=== PATIENT | female | born 1945 | race Caucasian/White ===

== ENCOUNTER 2020-02-11 08:50 | Inpatient (IN) | payer MEDICARE, BC ==
--- NOTE | 2020-02-11 09:28 | ED ---
General Adult HPI - General Chief complaint: Recheck/Abnormal Lab/Rx Stated complaint: Jaundice & itchy Time Seen by Provider: 02/11/20 09:00 Source: patient, RN notes reviewed Mode of arrival: ambulatory Limitations: no limitations - History of Present Illness Initial comments: This is a 74-year-old female history of colon cancer with resection who cur rently has a J-pouch also a history kidney stones with lithotripsy history of cholecystectomy in the past who presents with complaints of jaundice and itching for the past 8 days. She had been treated for urinary tract infection was and Bactrim but it did not seem to be helping she was switched to Macrobid. She has one Macrobid tablet left. She states that she started developing a yellow color to her eyes and skin 8 days ago. She was in [place] at the time or she lives she came home to visit family she presents now with this complaint. No recent illnesses except for the possible urinary tract infection no fevers chills nausea vomiting sweats cough phlegm production no trauma no other medications no other toxic substances that she is aware of. He has noted that her urine is been darker in addition to the yellowness to her skin and sclera. - Related Data Home Medications Medication Instructions Recorded Confirmed Aspirin EC [Ecotrin Low Dose] 81 mg PO HS 02/11/20 02/11/20 Fluticasone Nasal [place] [Flonase 2 spr EA NOSTRIL DAILY PRN 02/11/20 02/11/20 Nasal [place]] Levothyroxine Sodium [Synthroid] 88 mcg PO DAILY 02/11/20 02/11/20 Loperamide [Imodium] 4 mg PO BID 02/11/20 02/11/20 Meloxicam [Mobic] 7.5 mg PO BID 02/11/20 02/11/20 Montelukast [Singulair] 10 mg PO HS 02/11/20 02/11/20 Nitrofurantoin Monohyd/M-Cryst 100 mg PO Q12HR 02/11/20 02/11/20 [Macrobid] busPIRone HCL [Buspar] 7.5 mg PO BID PRN 02/11/20 02/11/20 Allergies Allergy/AdvReac Type Severity Reaction Status Date / Time Penicillins Allergy Rash/Hives Verified 02/11/20 09:42 mesalamine [From [place]] AdvReac Nausea Verified 02/11/20 09:42 Review of Systems ROS Statement: Those systems with pertinent positive or pertinent negative responses have been documented in the HPI. ROS Other: All systems not noted in ROS Statement are negative. Past Medical History Additional Past Medical History / Comment(s): colan cancer, kideny stones History of Any Multi-Drug Resistant Organisms: None Reported Past Surgical History: Bowel Resection, Cholecystectomy, Tonsillectomy Additional Past Surgical History / Comment(s): lithrotripsy Past Psychological History: No Psychological Hx Reported Smoking Status: Never smoker Past Alcohol Use History: None Reported Past Drug Use History: None Reported General Exam - General Exam Comments Initial Comments: This is a well-developed sec appearing female who is awake alert oriented 3 Limitations: no limitations General appearance: alert, in no apparent distress Head exam: Present: atraumatic, normocephalic, normal inspection Eye exam: Present: PERRL, EOMI, scleral icterus. Absent: conjunctival injection, periorbital swelling ENT exam: Present: normal exam, mucous membranes moist Neck exam: Present: normal inspection. Absent: tenderness, meningismus, lymphadenopathy Respiratory exam: Present: normal lung sounds bilaterally. Absent: respiratory distress, wheezes, rales, rhonchi, stridor Cardiovascular Exam: Present: regular rate, normal rhythm, normal heart sounds. Absent: systolic murmur, diastolic murmur, rubs, gallop, clicks GI/Abdominal exam: Present: soft, normal bowel sounds. Absent: distended, tenderness, guarding, rebound, rigid Extremities exam: Present: normal inspection, full ROM, normal capillary refill. Absent: tenderness, pedal edema, joint swelling, calf tenderness Back exam: Present: normal inspection Neurological exam: Present: alert, oriented X3, CN II-XII intact Psychiatric exam: Present: normal affect, normal mood Skin exam: Present: warm, dry, intact, other (Jaundice). Absent: rash Course Vital Signs 02/11/20 08:56 Temperature 98.1 F Pulse Rate 93 Respiratory 18 Rate Blood Pressure 125/80 O2 Sat by Pulse 98 Oximetry Medical Decision Making - Medical Decision Making I did discuss the findings thus far the patient as well as with her daughter over the phone. I also discussed the case with Dr. Miller. Patient will be admitted to Dr. Read's service with further evaluation for painless jaundice - Lab Data Result diagrams: 02/11/20 09:21 02/11/20 09:21 Lab Results 02/11/20 02/11/20 02/11/20 Range/Units 09:21 09:21 09:58 WBC 14.2 H (3.8-10.6) k/uL RBC 3.59 L (3.80-5.40) m/uL Hgb 11.6 (11.4-16.0) gm/dL Hct 36.8 (34.0-46.0) % MCV 102.6 H (80.0-100.0) fL MCH 32.2 (25.0-35.0) pg MCHC 31.4 (31.0-37.0) g/dL RDW 16.6 H (11.5-15.5) % Plt Count 293 (150-450) k/uL MPV 9.7 Neutrophils % (Manual) 72 % Lymphocytes % (Manual) 15 % Monocytes % (Manual) 8 % Eosinophils % (Manual) 5 % Neutrophils # (Manual) 10.22 H (1.3-7.7) k/uL Lymphocytes # (Manual) 2.13 (1.0-4.8) k/uL Monocytes # (Manual) 1.14 H (0-1.0) k/uL Eosinophils # (Manual) 0.71 H (0-0.7) k/uL Nucleated RBCs 0 (0-0) /100 WBC Manual Slide Review Performed Anisocytosis Slight Macrocytosis Moderate Target Cells Present Sodium 139 (137-145) mmol/L Potassium 4.4 (3.5-5.1) mmol/L Chloride 110 H (98-107) mmol/L Carbon Dioxide 19 L (22-30) mmol/L Anion Gap 10 mmol/L BUN 28 H (7-17) mg/dL Creatinine 1.20 H (0.52-1.04) mg/dL Est GFR (CKD-EPI)AfAm 51 (>60 ml/min/1.73 sqM) Est GFR (CKD-EPI)NonAf 44 (>60 ml/min/1.73 sqM) Glucose 135 H (74-99) mg/dL Calcium 9.4 (8.4-10.2) mg/dL Total Bilirubin 19.2 H* (0.2-1.3) mg/dL AST 122 H (14-36) U/L ALT 59 H (4-34) U/L Alkaline Phosphatase 449 H (38-126) U/L Creatine Kinase 74 (30-135) U/L Total Protein 7.5 (6.3-8.2) g/dL Albumin 3.7 (3.5-5.0) g/dL Urine Color Dark Brown Urine Appearance Cloudy H (Clear) Urine pH 6.0 (5.0-8.0) Ur Specific [place] 1.015 (1.001-1.035) Urine Protein 1+ H (Negative) Urine Glucose (UA) Negative (Negative) Urine Ketones Negative (Negative) Urine Blood Small H (Negative) Urine Nitrite Negative (Negative) Urine Bilirubin 4+ H (Negative) Urine Urobilinogen <2.0 (<2.0) mg/dL Ur Leukocyte Esterase Large H (Negative) Urine RBC 30 H (0-5) /hpf Urine WBC 62 H (0-5) /hpf Urine WBC Clumps Few H (None) /hpf Ur Squamous Epith Cells 20 H (0-4) /hpf Amorphous Sediment Rare H (None) /hpf Urine Bacteria Rare H (None) /hpf Hyaline Casts 6 H (0-2) /lpf Granular Casts 4 (0) /lpf WBC Casts 3 (0) /lpf Urine Mucus Occasional H (None) /hpf Disposition Clinical Impression: Painless jaundice, Renal insufficiency Disposition: ADMITTED IP TO THIS [facility] Condition: Fair Referrals: Nonstaff,Physician [Primary Care Provider] - 1-2 days
[2020-02-11 09:52] LABS: Albumin 3.7 g/dL (3.5-5.0); Calcium 9.4 mg/dL (8.4-10.2); Potassium 4.4 mmol/L (3.5-5.1); Total Protein 7.5 g/dL (6.3-8.2)
[2020-02-11 09:59] LABS: Total Bilirubin 19.2 mg/dL (0.2-1.3)
[2020-02-11 10:28] LABS: Amorphous Sediment,Urine Rare /hpf; Appearance,Urine Cloudy (Clear); Bacteria,Urine Rare /hpf; Bilirubin,Urine 4+ (Negative); Blood,Urine Small (Negative); Color,Urine Dark Brown; Glucose,Urine (UA) Negative (Negative); Granular Casts,Urine 4 /lpf (0); Hyaline Casts,Urine 6 /lpf (0-2); Ketones,Urine Negative (Negative); Leukocyte Esterase,Urine Large (Negative); Mucus,Urine Occasional /hpf; Nitrite,Urine Negative (Negative); Protein,Urine 1+ (Negative); RBC,Urine 30 /hpf (0-5); Specific Gravity,Urine 1.015 (1.001-1.035); Squamous Epithelial Cell,Urine 20 /hpf (0-4); Urobilinogen,Urine <2.0 mg/dL (<2.0); WBC,Urine 62 /hpf (0-5); White Blood Cell Casts,Urine 3 /lpf (0)
[2020-02-11 10:45] LABS: Anisocytosis Slight; HCT 36.8 % (34.0-46.0); HGB 11.6 gm/dL (11.4-16.0); MCH 32.2 pg (25.0-35.0); MCHC 31.4 g/dL (31.0-37.0); MCV 102.6 fL (80.0-100.0); Macrocytosis Moderate; Mean Platelet Volume 9.7; RBC 3.59 m/uL (3.80-5.40); RDW 16.6 % (11.5-15.5); WBC 14.2 k/uL (3.8-10.6)
[2020-02-11 11:11] LABS: Eosinophils # (M) 0.71 k/uL (0-0.7); Lymphocytes # (M) 2.13 k/uL (1.0-4.8); Monocytes # (M) 1.14 k/uL (0-1.0); Neutrophils # (M) 10.22 k/uL (1.3-7.7); Neutrophils % (M) 72 %; Nucleated Red Blood Cells 0 /100 WBC (0-0); Total Cells Counted 100
[2020-02-11 11:12] LABS: Target Cells Present
[2020-02-11 11:16] LABS: Platelet Count 293 k/uL (150-450)
[2020-02-11] MEDS ORDERED: NALOXONE 0.4 MG/ML 1 ML VIAL IV PRN (12:32)
[2020-02-11] MEDS: SODIUM CHLORIDE 0.9% 1,000 ML IV SCH (12:48)
--- NOTE | 2020-02-11 13:01 | CT ---
EXAMINATION TYPE: CT abdomen pelvis wo con DATE OF EXAM: 02/11/2020 HISTORY: painless jaundice CT DLP: 574.2 mGycm. Automated Exposure Control for Dose Reduction was Utilized. TECHNIQUE: CT scan of the abdomen and pelvis is performed without oral or IV contrast. COMPARISON: NONE FINDINGS: Within the limitations of a non-contrast study, the following observations are made. LUNG BASES: Mild bibasilar linear scarring and/or atelectasis. LIVER/GB: Liver normal in size. Gallbladder not well seen. Difficult to visualize extra hepatic bilia ry ducts with fullness in the marcel hepatis. There is mild ill-defined fluid and fat stranding extend ing from this level. Moderate to severe central periportal edema. PANCREAS: No suspicious mass or ductal dilatation. SPLEEN: No significant abnormality is seen. ADRENALS: No significant abnormality is seen. KIDNEYS: Roughly 6-8 small nonobstructing calculi scattered throughout the left kidney. There are mor e and larger calculi scattered throughout the right kidney measuring up to 11 mm long axis coronal im age 41. There are additional calculi in the right pelvis including dominant 14 mm calculus coronal im age 34 and adjacent dominant 14 mm calculus lower pole level coronal image 38. Asymmetric mild left-s ided hydronephrosis without obstructing calculus clearly seen. Poorly distended bladder. Bowel: Surgical changes at level of the rectum. Suboptimal evaluation of bowel without enteric contra st. Additional surgical sutures in the right lower quadrant/upper pelvis. No suspicious small or larg e bowel dilatation. GENITAL ORGANS: Heterogeneous anteverted uterus projects just to left of midline sagittal image 63. LYMPH NODES: No greater than 1cm abdominal or pelvic lymph nodes are appreciated. OSSEOUS STRUCTURES: Moderate to severe narrowing bilateral hip joints. Severe narrowing at the pubic symphysis. OTHER: No significant additional abnormality is seen. IMPRESSION: 1. Bilateral nonobstructing renal calculi right more numerous and larger than left side. Suspect mild left-sided hydronephrosis without obstructing calculus clearly seen. 2. Suboptimal study without IV or oral contrast. Liver normal in size with moderate to severe nonspec ific periportal edema. Poor visualization of gallbladder and biliary ducts. There is fullness in the marcel hepatis with mild fat stranding. Follow-up contrast enhanced CT or MRI advised to better evalua te and characterize. 3. Postsurgical changes to bowel without obstruction.
--- NOTE | 2020-02-11 14:25 | US ---
EXAMINATION TYPE: US abdomen complete DATE OF EXAM: 02/11/2020 COMPARISON: CLINICAL HISTORY: Painless jaundice. GB removed. Hx colon cancer. Jaundice. EXAM MEASUREMENTS: Liver Length: 15.7 cm CBD: 0.5 cm Spleen: 10.3 cm Right Kidney: 9.4 x 4.5 x 4.0 cm Left Kidney: 10.1 x 4.1 x 4.6 cm Pancreas: Tail obscured by overlying bowel gas Liver: Appears heterogenous. There is intrahepatic biliary dilatation. Caudate appears prominent Gallbladder: Surgically absent Evidence for sonographic Gu's sign: neg CBD/CHD: CBD appears wnl. CHD appears enlarged with possible internal echoes. Spleen: wnl Right Kidney: Multiple stones visualized with largest = 1.6 x 1.8 cm Left Kidney: Multiple stones visualized with largest = 0.6 x 0.7 cm Upper IVC: wnl Abd Aorta: No AAA visualized No ascites. The intrahepatic portion of the IVC and proximal abdominal aorta are within normal limits . Common bile duct is unremarkable. The visualized portions of the pancreas are homogenous. The sp regis is unremarkable. Kidneys are symmetric and free of hydronephrosis. There is bilateral nephroli thiasis. No renal lesions are seen. IMPRESSION: There is some intrahepatic biliary ductal dilation, consider gastroenterology consult. No evident mass.
[2020-02-11] MEDS ORDERED: busPIRone HCl 5 MG TAB PO PRN (17:01)
[2020-02-11] MEDS ORDERED: FLUTICASONE 50MCG/SPRAY NASAL 16GM EA NOSTRIL PRN (17:01)
[2020-02-11] MEDS ORDERED: HYDROmorphone 0.5 MG/0.5 ML SYRINGE IVP PRN (17:02)
--- NOTE | 2020-02-11 17:40 | XR ---
EXAMINATION TYPE: XR chest 1V portable DATE OF EXAM: 02/11/2020 COMPARISON: NONE HISTORY: Jaundice TECHNIQUE: Single view FINDINGS: There is no heart failure nor confluent pneumonic infiltrate. Costophrenic angles are clear . Thoracic aorta is atheromatous. Bony thorax is intact. IMPRESSION: No active cardiopulmonary disease.
[2020-02-11 18:37] LABS: Hepatitis A Antibody IgM Non-Reactive (Non-Reactive); Hepatitis B Core IgM Non-Reactive (Non-Reactive); Hepatitis B Surface Antigen Non-Reactive (Non-Reactive); Hepatitis C IgG Antibody Non-Reactive (Non-Reactive)
[2020-02-11 18:49] LABS: Bilirubin, Conjugated 9.5 mg/dL (0.0-0.3)
--- NOTE | 2020-02-11 18:50 | HP ---
HISTORY AND PHYSICAL DATE OF SERVICE: 02/10/2002 CHIEF COMPLAINTS: Jaundice and itchiness. HISTORY OF PRESENT ILLNESS: This 74-year-old woman with a past medical history of multiple medical problems, including bowel resection, cholecystectomy, tonsillectomy, was living in [place]. The patient apparently had a past history of colon cancer about 25 years ago. Currently the patient has come to [place] to visit family. The patient noted increasing jaundice. The patient was itching also. The patient came to [facility] and was admitted for further evaluation and treatment. The labs showed a creatinine of 1.20 and bilirubin is 19.2. Baseline is unknown. The patient has also had a recent UTI. The patient was taking Bactrim, but subsequently it was switched to Macrobid. The patient also had extensive CT scans. CT scan of the abdomen showed bilateral nonobstructing renal calculi which are numerous and suboptimal study was noted. Some intrahepatic biliary dilatation was suspected. There is no history of any fever, rigor or chills. No history of headache, loss of consciousness, seizures at this time. No history of abdominal pain. PAST MEDICAL HISTORY: History of bowel resection, cholecystectomy, tonsillectomy, lithotripsy, colon cancer. HOME MEDICATIONS: BuSpar 7.5 mg p.r.n., Macrobid, Singulair, Mobic, Imodium, Synthroid, Flonase, Ecotrin. ALLERGIES: PENICILLIN and MESALAMINE. FAMILY HISTORY: No history of heart disease or strokes in the family. SOCIAL HISTORY: No history of smoking. No history of alcohol intake. REVIEW OF SYSTEMS: ENT: Jaundiced. CARDIOVASCULAR SYSTEM: No angina, palpitations. RESPIRATORY SYSTEM: As mentioned earlier. GI: As mentioned earlier. : No dysuria or retention. NERVOUS SYSTEM: No numbness, weakness. ALLERGY/IMMUNOLOGY: No asthma, hayfever. MUSCULOSKELETAL: As mentioned earlier. HEMATOLOGY/ONCOLOGY: No history of anemia. ENDOCRINE: No history of diabetes, hypothyroidism. CONSTITUTIONAL: As mentioned earlier. DERMATOLOGY: Negative. RHEUMATOLOGY: Negative. PSYCHIATRY: As mentioned earlier. PHYSICAL EXAMINATION: Patient alert and oriented x3. Pulse 66, blood pressure 126/70, respiration 18, temperature 97.9, pulse ox 98% on room air. HEENT: Conjunctivae icteric. Oral mucosa icteric. NECK: No jugular venous distention. No carotid bruit. No lymph node enlargement. CARDIOVASCULAR SYSTEM: S1, S2 muffled. No S3. No S4. RESPIRATORY SYSTEM: Breath sounds diminished at the bases. No rhonchi. No crackles. ABDOMEN: Soft, non-tender. No mass palpable. No hepatosplenomegaly. No ascites. Bowel sounds present. LEGS: No edema. No swelling. NERVOUS SYSTEM: Higher functions as mentioned earlier. Moves all 4 limbs. No focal motor or sensory deficit. LYMPHATICS: No lymph node palpable in neck, axillae or groin. SKIN: No ulcer, rash, bleeding. JOINTS: No active deforming arthropathy. LABS: WBC 14.2, hemoglobin 11.6. Sodium 139, potassium 4.4. Creatinine is 1.2. Total bilirubin is 19.2. ASSESSMENT: 1. Severe jaundice. Rule out obstructive jaundice. 2. Rule out malignancy. 3. Increased creatinine with acute renal failure possibly. 4. Increased white count. 5. Increased mean corpuscular volume. 6. Possible urinary tract infection. 7. History of colon cancer and surgery. 8. History of nephrolithiasis. 9. History of cholecystectomy. 10.History of lithotripsy. 11.FULL CODE. RECOMMENDATIONS AND DISCUSSION: In this 74-year-old woman who presented with multiple complex medical issues, we will monitor the patient closely, continue the current medications, continue symptomatic treatment. Will avoid hepatotoxic medications. Empiric antibiotics. Cultures. Otherwise, I would also recommend a gastroenterology evaluation, fractionated bilirubin. Ultrasound of the liver was ordered. Prognosis guarded because of multiple complex medical issues. Further recommendations to follow. The patient might need ERCP or MRCP during the course of time to rule out the possibility of any pancreatic lesion. Otherwise, discussed with the patient. Continue the conservative line of management. Further recommendations to follow. MMODL / IJN: [id number] /
[2020-02-11 19:04] LABS: INR 1.4 (<1.2); Prothrombin Time 14.3 sec (9.0-12.0)
[2020-02-11] MEDS: MONTELUKAST 10 MG TAB PO SCH (21:49)
--- NOTE | 2020-02-11 21:58 | CONS ---
CONSULTATION DATE OF DICTATION: 02/11/2020 REASON FOR CONSULTATION: Painless jaundice. HISTORY OF PRESENT ILLNESS: The patient is a 74-year-old pleasant white female who was admitted to the hospital for yellowish discoloration of skin noticed by her about 3 days ago. The patient states that for the last one week she has been having dark-colored urine and some pale- colored stools. She also has some itching going on. She came to the emergency room today and was noted to have a bilirubin of 19 and alkaline phosphatase of 450 with mild elevation of serum transaminases. She denies any associated abdominal pain. No nausea, no vomiting. She voluntarily lost about 20 pounds in the last 6 months' duration. She was recently treated with Bactrim for UTI about 10 days ago. She was diagnosed with ulcerative colitis 25 years ago as well as colon cancer and underwent total proctocolectomy with ileostomy which was subsequently reversed and had a J-pouch done. She does not recall having elevated LFTs in the past, and no history of primary sclerosing cholangitis that was diagnosed in the past. PAST MEDICAL HISTORY: Her past medical history is significant for ulcerative colitis diagnosed 23 years ago, status post total proctocolectomy with J-pouch, history of colon cancer, hypothyroidism, degenerative joint disease, hypertension, anxiety. MEDICATIONS: Medications at home include BuSpar, Macrobid, Singulair, Mobic, Imodium, Synthroid, Flonase and aspirin. ALLERGIES: PENICILLIN and CANASA SUPPOSITORIES. SOCIAL HISTORY: No smoking. No alcohol use. PAST SURGICAL HISTORY: Total proctocolectomy with J-pouch 23 years ago, cholecystectomy, tonsillectomy and lithotripsy. REVIEW OF SYSTEMS: CARDIOPULMONARY: No chest pain or shortness of breath. GENITOURINARY: No dysuria or hematuria. MUSCULOSKELETAL: Unremarkable. SKIN: Unremarkable. ENDOCRINE: Unremarkable. PSYCHIATRIC: Unremarkable. NEUROLOGY: Unremarkable. ENT/VISION: Unremarkable. CONSTITUTIONAL: Weight loss of 20 pounds, but it was all voluntary. No fever, chills, night sweats. PHYSICAL EXAMINATION: She appears comfortable. No apparent distress. VITAL SIGNS: Stable. Blood pressure is 133/80, pulse rate 93, temperature 98.1. HEENT examination unremarkable. Conjunctivae pink. Sclerae deeply icteric. Oral cavity no lesions. NECK: No JVD or lymph node enlargement. CHEST: Clear to auscultation. HEART: Regular rate and rhythm. ABDOMEN: Soft. Non-tender. Non-distended. Bowel sounds are positive. EXTREMITIES: No pedal edema. NEUROLOGIC: She is alert and oriented x3. No focal deficits. LABS: WBC 14, hemoglobin 11, platelets 293. BUN 28, creatinine 1.20. T-bilirubin is 19.2, AST 122, ALT 59, alkaline phosphatase 449. Albumin 3.7. IMPRESSION: 1. This lady presented to the hospital with painless jaundice for the last one week's duration. She has been having some pruritus but no abdominal pain. No nausea, no vomiting. Had voluntary weight loss of 20 pounds in the last 6 months' duration. Labs showed a bilirubin of 19.6 with an alkaline phosphatase of 480 and minimally elevated AST and ALT. CT of the abdomen was done without any contrast because of elevated creatinine which showed normal-appearing pancreas and no intra- or extrahepatic biliary ductal dilation. There was some fullness noted in the marcel hepatitis. There was some moderate to severe periportal edema noted. Ultrasound of the abdomen is still pending. 2. History of ulcerative colitis diagnosed 23 years ago, status post total proctocolectomy with J-pouch anastomosis. No history of elevated LFTs or PSC according to the patient. 3. Mild leukocytosis/urinary tract infection. RECOMMENDATIONS: 1. Will await ultrasound of the abdomen results, and if they are inconclusive we can proceed with an MRCP to evaluate this further. 2. Obtain CA-99 levels. 3. If the patient will need any endoscopic intervention, especially an ERCP or an EUS, I briefly told her that she may need to be transferred to a tertiary institute, but we will discuss this tomorrow once more imaging study results are available. Thank you for this consultation. Will follow with you closely. MMODL / IJN: [id number] /
[2020-02-11] MEDS: LOPERAMIDE 2 MG CAP PO SCH (22:51)
[2020-02-12] MEDS: SODIUM CHLORIDE 0.9% 1,000 ML IV SCH ×2 (01:36→13:49)
[2020-02-12 05:27] VITALS: PULSE 77
[2020-02-12] MEDS ORDERED: LEVOTHYROXINE 88 MCG TAB PO SCH (06:30)
[2020-02-12 06:46] LABS: Anisocytosis Slight; Basophils # (A) 0.1 k/uL (0-0.2); Basophils % (A) 1 %; Eosinophils # (A) 0.3 k/uL (0-0.7); Eosinophils % (A) 3 %; HCT 29.5 % (34.0-46.0); Hypochromasia Slight; Lymphocytes # (A) 1.3 k/uL (1.0-4.8); Lymphocytes % (A) 13 %; MCH 33.7 pg (25.0-35.0); MCHC 32.4 g/dL (31.0-37.0); MCV 104.2 fL (80.0-100.0); Macrocytosis Moderate; Mean Platelet Volume 8.5; Monocytes # (A) 0.6 k/uL (0-1.0); Monocytes % (A) 6 %; Neutrophils # (A) 7.9 k/uL (1.3-7.7); Neutrophils % (A) 76 %; Platelet Count 218 k/uL (150-450); RBC 2.83 m/uL (3.80-5.40); RDW 16.4 % (11.5-15.5); WBC 10.4 k/uL (3.8-10.6)
[2020-02-12 07:01] LABS: HGB 9.5 gm/dL (11.4-16.0)
[2020-02-12] MEDS: LOPERAMIDE 2 MG CAP PO SCH ×2 (07:50→20:26)
[2020-02-12] MEDS ORDERED: PANTOPRAZOLE 40 MG/10 ML VIAL IV SCH (09:00)
[2020-02-12 10:13] LABS: African American GFR (CKD) 56.5 (60.0-200.0); Albumin 3.1 g/dL (3.80-4.90); Albumin/Globulin Ratio 1.55 (1.60-3.17); Anion Gap 9.3 mmol/L (4.00-12.00); BUN/Creat Ratio 23.64 Ratio (12.00-20.00); Calcium 8.4 mg/dL (8.7-10.3); Carbon Dioxide 19.7 mmol/L (21.6-31.8); Non-African American GFR(CKD) 48.7 (60.0-200.0); Potassium 3.5 mmol/L (3.5-5.5); Total Protein 5.1 g/dL (6.2-8.2)
--- NOTE | 2020-02-12 10:23 | PN ---
PROGRESS NOTE DATE OF SERVICE: February 12, 2020 Patient is a 74-year-old pleasant white female admitted to the hospital with painless jaundice. She had a CT scan done that was inconclusive, which was done without contrast. Ultrasound of the abdomen done yesterday did show evidence of mild intrahepatic biliary ductal dilation with a coarse in the common hepatic duct, but no significant extrahepatic biliary ductal dilation seen. Labs show a bilirubin of 17 and CA99 was reported as 15,567. The patient denies any new symptoms today. Continues to have pruritus. PHYSICAL EXAMINATION: Appears comfortable. Vital signs are stable. Blood pressure 106/60, pulse rate 77, temperature 97.8. HEENT examination unremarkable. Conjunctivae pink. Sclerae deeply icteric. Oral cavity no lesions. Neck: No JVD. No lymph node enlargement. CHEST was clear to auscultation. HEART: Regular rate and rhythm. ABDOMEN: Soft. Bowel sounds are positive. No organomegaly. EXTREMITIES: No pedal edema. NEURO: She is alert and oriented x3. No focal deficits. LABS: From today: WBC 10, hemoglobin 9.5, platelets normal. INR 1.4. Bilirubin is 17.6. CA99 is 15,567. Hepatitis A, B and C are negative. IMPRESSION: 1. Painless obstructive jaundice, most likely secondary to extrahepatic biliary obstruction. CT of the abdomen showed normal-appearing pancreas but was done without IV or p.o. contrast. Ultrasound of the abdomen showed mild intrahepatic biliary ductal dilation with normal-appearing common bile duct. The patient has history of ulcerative colitis for which she underwent total proctocolectomy with J- pouch 25 years ago. At this time, possibility of PFC complicated by cholangiocarcinoma or a pancreatic neoplasm cannot be entirely excluded. RECOMMENDATIONS: I had a lengthy discussion with the patient regarding further management. At this time, she will need UF as well as ERCP with biliary drainage and recommend her to be transferred to a tertiary institute for further management. She is agreeable with this plan. We will discuss with Dr. Read. Thank you for this consultation. MMODL / IJN: [id number] /
[2020-02-12 13:51] VITALS: BP 112/70; TEMP 97.5
[2020-02-12] MEDS: MONTELUKAST 10 MG TAB PO SCH (20:26)
[2020-02-12 23:39] VITALS: RESP 17
[2020-02-14 10:16] LABS: Total Bilirubin 16.9 mg/dL (0.3-1.2)
== END 2020-02-13 01:30 | disposition short-term general hospital (02) | DRG 445 ==
LOC: EC 08:50 → 5NMEDONC 12:32
PROVIDERS: ADMIT Hospitalist; ATTEND Hospitalist
DX: K83.1 Obstruction of bile duct (principal); K51.90 Ulcerative colitis, unspecified, without complications; N17.9 Acute kidney failure, unspecified; N39.0 Urinary tract infection, site not specified; N20.0 Calculus of kidney; E03.9 Hypothyroidism, unspecified; I10 Essential (primary) hypertension; M19.90 Unspecified osteoarthritis, unspecified site; F41.9 Anxiety disorder, unspecified; L29.9 Pruritus, unspecified; Z20.828 Contact with and (suspected) exposure to other viral communicable diseases; Z79.1 Long term (current) use of non-steroidal anti-inflammatories (NSAID); Z79.82 Long term (current) use of aspirin; Z79.890 Hormone replacement therapy; Z79.899 Other long term (current) drug therapy; Z85.038 Personal history of other malignant neoplasm of large intestine; Z90.49 Acquired absence of other specified parts of digestive tract; Z87.442 Personal history of urinary calculi; Z87.19 Personal history of other diseases of the digestive system; Z90.89 Acquired absence of other organs; Z87.440 Personal history of urinary (tract) infections; Z98.890 Other specified postprocedural states; Z88.0 Allergy status to penicillin; Z88.8 Allergy status to other drugs, medicaments and biological substances
CPT/HCPCS: 36415; 71045; 74176; 76700; 80053; 80074; 81001; 82248; 82550; 85025; 85610; 86301; 87040; 87086; 87635; 99285